=== PATIENT | female | born 1945 | race Caucasian/White ===

== ENCOUNTER 2016-07-20 10:10 | Day surgery (SDC) | payer MEDICARE, OTHER ==
[~2016-07-20] VITALS: Ht 165.1 cm; Wt 76.7 kg
[~2016-07-20 10:10] MED LIST: 0.9% Sodium Chloride 1,000 ML IV SCH; ACET325T51 PO; AMIL5TAB2 PO; ATOR80TA PO; CALC-975 PO; CLON0.3T PO; CLON1PAT16 TD; CYAN1TAB8 PO; CYCL1DRO OP; FURO40TA4 PO; LABE200T PO; LEVO125T6 PO; OMEG-38 PO; POTA10TA12 PO; RANI300T4 PO; Sodium Chloride LOK Flush 10 mL Syringe IV PRN; fentaNYL-PF 50 mCg/mL 2 mL Inj IVPUSH PRN
[2016-07-20 10:39] VITALS: BP 142/80; PULSE 61; RESP 17; O2SAT 98
--- NOTE | 2016-07-20 11:59 | PCM.ENDEGD ---
EGD Date of Service: July 20, 2016 Physician Delroy Villanueva MD Pre Procedure Diagnosis: Dysphagia Post Procedure Dx & Findings: Esophageal irritation gastritis Procedure Esophagogastroduodenoscopy PROCEDURE IN DETAIL: After proper sedation, Olympus video endoscope was inserted into patient's mouth and esophagus was successfully intubated. Scope introduced esophagus. Esophagus showed normal shiny whitish mucosa consistent with squamous cell component. Z line was overall intact at 40 cm from the incisors. It was one spot that looked irritated with redness and discontinuation of the Z line. This was biopsied. Scope further advanced to the stomach. Patient had redness edema superficial ulceration from the antrum to the body of the stomach. Multiple biopsies obtained. Bilious material noted in the stomach. Cardia fundus body antrum pylorus were all visualized. Retroflexion was done. Stomach was easily inflated and deflatable using air. Scope further events to the distal duodenum. Duodenum revealed normal villous structures with normal appearing folds without any mass ulcer erosion. Impression Esophageal irritation Ulcerative gastropathy Bilious material in the stomach Recommendation Avoid NSAIDs Continue Prilosec at current dose Await biopsies Presedation Assessment Risks and Benefits Informed consent was obtained from the patient after all risks and benefits including but not limited to drug reaction, infection, pain, bleeding, perforation, as well as alternatives were discussed. Patient monitoring Continuous pulse oximetry, cardiac monitoring, blood pressure monitoring, IV access, and oxygen at 2L per nasal cannula. Periprocedural Fentanyl: Fentanyl 75mcg Incrementally Midazolam: Midazolam 3mg Incrementally Complications There were no periprocedural complications identified. Post Procedure Plan Post Procedure Recommendations 1. Restrict activities today. 2. Resume normal activities in the morning. 3. Resume medications. 4. GERD behavioral modification: - Avoid fatty, acidic, spicy, large meals - Do not lie down after meals - Do not eat or drink anything for at least 2 1/2 hours before going to bed at night - Discontinue tobacco and alcohol - Decrease or avoid caffeine - Avoid chocolate and mints - Decrease weight - Avoid aspirin and non steroidal anti-inflammatory agents (NSAID) such as Aleve, Advil, Mobic, Naproxen, Ibuprofen, etc 5. Add proton pump inhibitor. Take 30 minutes before 1st meal of the day. 6. Patient informed of normal post procedure side effects as bloating, drowsiness, blood streaking in the stool 7. If gastric biopsy reveal H.pylori, continue with appropriate treatment 8. If small bowel biopsy reveals celiac, continue with appropriate treatment 9. Please don't hesitate to call me with any questions Delroy Villanueva MD July 20, 2016 11:59
[2016-07-20 12:02] VITALS: BP 122/67; PULSE 62; RESP 14; O2SAT 96
[2016-07-20 12:12] VITALS: BP 121/69; PULSE 72; RESP 14; O2SAT 98
[2016-07-20 12:22] VITALS: BP 127/65; PULSE 65; RESP 16; O2SAT 97
--- NOTE | 2016-07-21 15:09 | PATH ---
SURGICAL PATHOLOGY Attending Physician:Delroy Villanueva M.D. CASE STATUS: Signed Out PATIENT NAME: ANDRE LIU PID: [id number] : 1945 DATE COLLECTED:07/20/2016 21:35 SPECIMEN: 1: Stomach, Antrum, Biopsy 2: Esophagus, Biopsy CLINICAL HISTORY: 1). ANTRUM BIOPSY 2). ESOPHAGEAL IRRITATION AT 40CM FINAL DIAGNOSIS: 1.ANTRUM BIOPSY: MILD CHRONIC GASTRITIS INVOLVING FRAGMENTS OF ANTRAL MUCOSA AND FUNDIC MUCOSA. Negative for evidence of Helicobacter. Negative for intestinal metaplasia. Negative for dysplasia and malignancy. 2.ESOPHAGEAL IRRITATION BIOPSY AT 40 CM: SQUAMOUS MUCOSA AND GASTRIC CARDIA-TYPE MUCOSA WITH PROMINENT SQUAMOUS REACTIVE EPITHELIAL CHANGES. Negative for specialized metaplasia of Arndt' s-type esophagus. Negative for dysplasia and malignancy. Negative for squamous intraepithelial eosinophils. ICD10 code K29.70 GROSS DESCRIPTION: The specimen is received in two formalin filled containers labeled with the patient's name. 1). The specimen is sublabeled "antrum" and consists of 4 portions of tissue which aggregate to 0.4 x 0.3 x 0.2 CM. The specimen is entirely submitted in cassette 1A. 2). The specimen is sublabeled "esophageal irritation at 40 CM" and consists of a 0.4 x 0.2 x 0.2 CM portion of tissue which is entirely submitted in cassette 2A. 07/20/2016 [facility] MICRO DESCRIPTION: See diagnosis. ICD-9 CODES: CPT CODES: 1: 83348 2: 59023 Electronically Signed Out Jose Martinez MD [facility] Pathology [facility] [address], [place] [address] Technical component performed at [facility], [facility] [address], [place], [address]
== END 2016-07-20 23:59 | disposition home or self-care (01) ==
LOC: END 10:10
PROVIDERS: ATTEND Internal Medicine
DX: K29.50 Unspecified chronic gastritis without bleeding (principal); K31.89 Other diseases of stomach and duodenum; R13.10 Dysphagia, unspecified; I10 Essential (primary) hypertension; E78.5 Hyperlipidemia, unspecified; K21.9 Gastro-esophageal reflux disease without esophagitis; E03.9 Hypothyroidism, unspecified
CPT/HCPCS: 43239; 88305; G0500; J7030